=== PATIENT | male | born 1945 | race Caucasian/White ===

== ENCOUNTER 2016-12-13 13:26 | Emergency (ER) | payer MEDICARE, BC ==
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
[2016-12-13] MEDS ORDERED: Ketorolac 60 MG/2 ML SDV IM ONE (14:17)
[2016-12-13 15:56] VITALS: BP 169/97
== END 2016-12-13 15:00 | disposition home or self-care (01) ==
LOC: LL.ED 13:26
DX: S43.102A Unspecified dislocation of left acromioclavicular joint, initial encounter (principal); K02.9 Dental caries, unspecified; I10 Essential (primary) hypertension; M15.0 Primary generalized (osteo)arthritis; F17.200 Nicotine dependence, unspecified, uncomplicated; Z79.899 Other long term (current) drug therapy; Z71.6 Tobacco abuse counseling; V89.9XXA Person injured in unspecified vehicle accident, initial encounter
CPT/HCPCS: 71101; 73030; 96372; 99283; J1885